=== PATIENT | male | born 1985 | race Caucasian/White ===

== ENCOUNTER 2016-08-15 12:19 | Emergency (ER) | payer MEDICAID ==
[~2016-08-15] VITALS: Ht 182.9 cm; Wt 111.2 kg
[~2016-08-15 12:19] MED LIST: ARIP5TAB6 PO; BUSP5TAB2 PO; SERT100T PO
[2016-08-15 12:28] VITALS: BP 135/90
== END 2016-08-15 14:05 | disposition left against medical advice (07) ==
LOC: ED 13:17
DX: J02.9 Acute pharyngitis, unspecified (principal)
CPT/HCPCS: 71020; 99284